=== PATIENT | male | born 1975 | race Caucasian/White ===

== ENCOUNTER 2021-07-27 21:38 | Emergency (ER) | payer OTHER ==
[~2021-07-27] VITALS: Ht 170.2 cm; Wt 93.4 kg
[2021-07-27] MEDS ORDERED: NORVASC5 MG (23:48)
[2021-07-27] MEDS ORDERED: LANTUS SOL100 UNIT/1 (23:48)
[2021-07-27] MEDS ORDERED: ZESTRIL20 MG (23:48)
[2021-07-27] MEDS ORDERED: GLUMETZA500 MG (23:48)
[2021-07-27] MEDS ORDERED: ACTOS30 MG (23:49)
[2021-07-27] MEDS ORDERED: PERCOCET 5-3251 EACH (23:49)
[2021-07-27] MEDS ORDERED: NEURONTIN800 MG (23:49)
[2021-07-27] MEDS ORDERED: AMBIEN10 MG (23:50)
[2021-07-27] MEDS ORDERED: SEROQUEL200 MG (23:50)
[2021-07-27] MEDS ORDERED: CLONAZEPAM1 GM (23:51)
[2021-07-27] MEDS ORDERED: EFFEXOR XR150 MG (23:51)
== END 2021-07-28 04:23 ==
LOC: ER 21:38
DX: M54.5 Low back pain (principal)